=== PATIENT | female | born 1990 | race American Indian/Alaskan Native ===

== ENCOUNTER 2016-06-08 13:18 | Emergency (ER) | payer MEDICAID ==
[2016-06-08 16:14] LABS: Bacteria,Urine 1+ /HPF (Negative); Bilirubin,Urine NEG (Negative); Blood,Urine NEG (Negative); Ketones,Urine NEG (Negative); Leukocyte Esterase,Urine LG (Negative); Mucus,Urine FEW /HPF; Nitrite,Urine NEG (Negative); Protein,Urine <15 mg/dL mg/dL (Negative); Urobilinogen,Urine < 2.0 mg/dL (<2.0)
--- NOTE | 2016-06-08 18:34 | Emergency Department Report ---
ED Female HPI - General Chief complaint: Urogenital-Female Stated complaint: ABD/BACK PAINS Time Seen by Provider: 06/08/16 17:32 Source: patient, family Mode of arrival: Ambulatory Limitations: No Limitations - History of Present Illness Initial comments: Patient here complaining of lower abdominal pain and flank pain with lower back pain. She says she feels like she has a urinary tract infection. She reports pain at 7 out of 10 to her lower abdomen. Patient says she is 19 weeks and she's been followed by [employer]. Denies any nausea vomiting. Denies any vaginal bleeding or discharge. Denies any fever or chills. Reports eating and drinking well. No [id number] medication taken. MD Complaint: pelvic pain, other (flank pain) Onset/Timin -: days(s) Location: other (abdominal and flank pain.) Radiation: non-radiating Severity: moderate Severity scale (0 -10): 7 Quality: cramping Consistency: intermittent Improves with: none Worsens with: none Are you Now?: Yes (98) Associated Symptoms: abdominal pain. denies: vaginal discharge, vaginal bleeding, nausea/vomiting, fever/chills, headaches, loss of appetite, dysuria, hematuria, rash, seizure, shortness of breath, syncope, weakness - Related Data Sexually active: Yes (positive ) Previous Rx's Medication Instructions Recorded Last Taken Type HYDROcodone/APAP 5-325 [Jean 1 each PO Q6HR PRN #20 tablet 01/06/14 Unknown Rx 5/325] Naproxen [Naprosyn TAB] 500 mg PO BID PRN #30 tablet 01/06/14 Unknown Rx Cyclobenzaprine [Flexeril 10mg] 10 mg PO TID PRN #14 tablet 04/08/14 Unknown Rx Ibuprofen [Motrin] 600 mg PO Q8H PRN #20 tablet 04/08/14 Unknown Rx Acetaminophen [Acetaminophen TAB] 500 mg PO Q8H PRN #12 tablet 06/08/16 Unknown Rx Nitrofurantoin Sanborn/M-Cryst 100 mg PO Q12HR #14 capsule 06/08/16 Unknown Rx [Macrobid CAP] Allergies Allergy/AdvReac Type Severity Reaction Status Date / Time No Known Allergies Allergy Verified 01/06/14 23:04 ED Review of Systems ROS: Stated complaint: ABD/BACK PAINS Other details as noted in HPI Comment: All other systems reviewed and negative Constitutional: denies: chills, fever Eyes: denies: eye pain, vision change ENT: denies: ear pain, throat pain, congestion Respiratory: no symptoms reported Cardiovascular: denies: chest pain, palpitations, edema, syncope Gastrointestinal: abdominal pain. denies: nausea, vomiting, diarrhea, constipation Genitourinary: denies: urgency, dysuria, frequency, hematuria, discharge, abnormal menses, dyspareunia Musculoskeletal: back pain Skin: denies: rash Neurological: denies: headache, weakness, numbness, paresthesias, confusion, abnormal gait, vertigo ED Past Medical Hx - Past Medical History Previous Medical History?: No - Surgical History Past Surgical History?: Yes Additional Surgical History: D & C - Family History Family history: no significant - Social History Smoking Status: Never Smoker Substance Use Type: None - Medications Home Medications: Home Medications Medication Instructions Recorded Confirmed Last Taken Type HYDROcodone/APAP 5-325 [Jean 1 each PO Q6HR PRN #20 tablet 01/06/14 Unknown Rx 5/325] Naproxen [Naprosyn TAB] 500 mg PO BID PRN #30 tablet 01/06/14 Unknown Rx Cyclobenzaprine [Flexeril 10mg] 10 mg PO TID PRN #14 tablet 04/08/14 Unknown Rx Ibuprofen [Motrin] 600 mg PO Q8H PRN #20 tablet 04/08/14 Unknown Rx Acetaminophen [Acetaminophen TAB] 500 mg PO Q8H PRN #12 tablet 06/08/16 Unknown Rx Nitrofurantoin Sanborn/M-Cryst 100 mg PO Q12HR #14 capsule 06/08/16 Unknown Rx [Macrobid CAP] ED Physical Exam - General Limitations: No Limitations General appearance: alert, in no apparent distress - Head Head exam: Present: atraumatic, normocephalic, normal inspection - Eye Eye exam: Present: normal appearance, PERRL, EOMI. Absent: periorbital swelling , periorbital tenderness Pupils: Present: normal accommodation - ENT ENT exam: Present: normal exam, normal orophraynx, mucous membranes moist, TM's normal bilaterally, normal external ear exam - Neck Neck exam: Present: normal inspection, full ROM. Absent: tenderness, meningismus, lymphadenopathy - Respiratory Respiratory exam: Present: normal lung sounds bilaterally. Absent: respiratory distress, chest wall tenderness - Cardiovascular Cardiovascular Exam: Present: regular rate, normal rhythm, normal heart sounds - GI/Abdominal GI/Abdominal exam: Present: soft, normal bowel sounds. Absent: distended, tenderness, guarding, rebound, rigid - External exam: Present: normal external exam. Absent: erythema, swelling, lesions, lacerations, ecchymosis, bleeding Speculum exam: Present: normal speculum exam. Absent: erythema, vaginal discharge, cervical discharge, vaginal bleeding, foreign body, tissue, laceration Bi-manual exam: Present: normal bi-manual exam. Absent: cervical motion tendernes, adnexal tenderness, adnexal mass, uterine enlargement, uterine tenderness - Expanded Exam Expanded Female exam: Absent: vaginal laceration, tissue present in vagina, herpetic lesions, vulvar erythema, vulvar tenderness, foreign body External exam: Present: normal Amniotic fluid: Present: none Speculum exam: Present: cervical OS closed. Absent: vaginal bleeding, vaginal discharge - Extremities Exam Extremities exam: Present: normal inspection, full ROM, normal capillary refill. Absent: tenderness, pedal edema, joint swelling, calf tenderness - Back Exam Back exam: Present: normal inspection, full ROM. Absent: tenderness, CVA tenderness (R), CVA tenderness (L), muscle spasm, paraspinal tenderness, vertebral tenderness, rash noted - Neurological Exam Neurological exam: Present: alert, oriented X3, normal gait, reflexes normal. Absent: motor sensory deficit - Psychiatric Psychiatric exam: Present: normal affect, normal mood - Skin Skin exam: Present: warm, dry, intact, normal color. Absent: rash ED Course Vital Signs 06/08/16 06/08/16 14:46 20:21 Temperature 98.4 F Pulse Rate 89 76 Respiratory 16 18 Rate Blood Pressure 119/66 Blood Pressure 121/67 [Left] O2 Sat by Pulse 100 99 Oximetry heart tone is at 168 bpm. - Reevaluation(s) Reevaluation #1: 06/08/16 20:58 Patient given Rocephin 1 g IM and emergency room for urinary tract infection and Tylenol 650 mg for pain. 06/08/16 21:08 ED Medical Decision Making - Lab Data Result diagrams: 06/08/16 18:52 06/08/16 18:52 Lab Results 05/02/2406/08/16 06/08/16 Range/Units 15:53 18:52 18:52 WBC 8.4 (4.5-11.0) K/mm3 RBC 3.66 (3.65-5.03) M/mm3 Hgb 11.4 (10.1-14.3) gm/dl Hct 34.1 (30.3-42.9) % MCV 93 (79-97) fl MCH 31 (28-32) pg MCHC 34 (30-34) % RDW 12.8 L (13.2-15.2) % Plt Count 273 (140-440) K/mm3 Lymph % (Auto) 25.2 (13.4-35.0) % Sanborn % (Auto) 10.0 H (0.0-7.3) % Eos % (Auto) 2.4 (0.0-4.3) % Baso % (Auto) 0.3 (0.0-1.8) % Lymph # 2.1 (1.2-5.4) K/mm3 Sanborn # 0.8 (0.0-0.8) K/mm3 Eos # 0.2 (0.0-0.4) K/mm3 Baso # 0.0 (0.0-0.1) K/mm3 Seg Neutrophils % 62.1 (40.0-70.0) % Seg Neutrophils # 5.2 (1.8-7.7) K/mm3 Sodium 136 L (137-145) mmol/L Potassium 4.1 (3.6-5.0) mmol/L Chloride 99.2 (98-107) mmol/L Carbon Dioxide 25 (22-30) mmol/L Anion Gap 16 mmol/L BUN 10 (7-17) mg/dL Creatinine 0.5 L (0.7-1.2) mg/dL Estimated GFR > 60 ml/min BUN/Creatinine Ratio 20.00 % Glucose 85 (65-100) mg/dL Calcium 9.2 (8.4-10.2) mg/dL HCG, Quant (0-4) mIU/mL Urine Color Yellow (Yellow) Urine Turbidity Cloudy (Clear) Urine pH 6.0 (5.0-7.0) Ur Specific [place] 1.013 (1.003-1.030) Urine Protein <15 mg/dl (Negative) mg/dL Urine Glucose (UA) Neg (Negative) mg/dL Urine Ketones Neg (Negative) mg/dL Urine Blood Neg (Negative) Urine Nitrite Neg (Negative) Urine Bilirubin Neg (Negative) Urine Urobilinogen < 2.0 (<2.0) mg/dL Ur Leukocyte Esterase Lg (Negative) Urine WBC (Auto) 165.0 H (0.0-6.0) /HPF Urine RBC (Auto) 9.0 (0.0-6.0) /HPF U Epithel Cells (Auto) 10.0 (0-13.0) /HPF Urine Bacteria (Auto) 1+ (Negative) /HPF Urine Mucus Few /HPF 06/08/16 Range/Units 18:52 WBC (4.5-11.0) K/mm3 RBC (3.65-5.03) M/mm3 Hgb (10.1-14.3) gm/dl Hct (30.3-42.9) % MCV (79-97) fl MCH (28-32) pg MCHC (30-34) % RDW (13.2-15.2) % Plt Count (140-440) K/mm3 Lymph % (Auto) (13.4-35.0) % Sanborn % (Auto) (0.0-7.3) % Eos % (Auto) (0.0-4.3) % Baso % (Auto) (0.0-1.8) % Lymph # (1.2-5.4) K/mm3 [place]born # (0.0-0.8) K/mm3 Eos # (0.0-0.4) K/mm3 Baso # (0.0-0.1) K/mm3 Seg Neutrophils % (40.0-70.0) % Seg Neutrophils # (1.8-7.7) K/mm3 Sodium (137-145) mmol/L Potassium (3.6-5.0) mmol/L Chloride (98-107) mmol/L Carbon Dioxide (22-30) mmol/L Anion Gap mmol/L BUN (7-17) mg/dL Creatinine (0.7-1.2) mg/dL Estimated GFR ml/min BUN/Creatinine Ratio % Glucose (65-100) mg/dL Calcium (8.4-10.2) mg/dL HCG, Quant 71928 H (0-4) mIU/mL Urine Color (Yellow) Urine Turbidity (Clear) Urine pH (5.0-7.0) Ur Specific [place] (1.003-1.030) Urine Protein (Negative) mg/dL Urine Glucose (UA) (Negative) mg/dL Urine Ketones (Negative) mg/dL Urine Blood (Negative) Urine Nitrite (Negative) Urine Bilirubin (Negative) Urine Urobilinogen (<2.0) mg/dL Ur Leukocyte Esterase (Negative) Urine WBC (Auto) (0.0-6.0) /HPF Urine RBC (Auto) (0.0-6.0) /HPF U Epithel Cells (Auto) (0-13.0) /HPF Urine Bacteria (Auto) (Negative) /HPF Urine Mucus /HPF Urine culture pending She says she already had STD testing at her [employer] office. She says she is not concerned about STD and she does not want to have another one done. - Radiology Data Radiology results: report reviewed . Ultrasound greater than 14 weeks revealed a viable single intrauterine with estimated gestational age is 20 weeks and one day. Estimated due date is 10/25/2016. Placenta is in the right lateral position. The cervix measuring approximately 3.7 cm in length. Biparietal diameter 4.6 cm. Head circumference 17.1 cm. Abdominal circumference (15.2 cm. Femur length history 0.3 cm. Cephalic presentation. - Medical Decision Making ED course: Patient here complaining of lower abdominal pain and back pain. Urinary tract infection. Reveals patient at 20 weeks and 1 day IUP. I discussed lab results with patient along with ultrasound results and told her to follow up with her [employer] in the morning. Patient discharged home with prescription for Tylenol plain and Macrobid. She was given Tylenol 650 mg by mouth for abdominal and back pain and Rocephin 1 g IM for urinary tract infection. She was understanding of discharge diagnosis and treatment plan and discharged home in stable condition with her family. Patient also reported that she was tested for STD recently by her [employer] and she does not want any testing done because she is not concerned about that. She said all her tests were negative. Critical care attestation.: If time is entered above; I have spent that time in minutes in the direct care of this critically ill patient, excluding procedure time. ED Disposition Clinical Impression: Acute cystitis without hematuria, Back pain during Intrauterine normal Qualifiers: Trimester: second trimester Qualified Code(s): Z34.92 - Encounter for supervision of normal , unspecified, second trimester Abdominal pain during Qualifiers: Trimester: second trimester Qualified Code(s): O26.892 - Other specified related conditions, second trimester; R10.9 - Unspecified abdominal pain Disposition: DISCHARGED TO HOME OR SELFCARE Is pt being admited?: No Does the pt Need Aspirin: No Condition: Stable Instructions: Urinary Tract Infection in Women (ED), Acute Abdominal Pain (ED) , Low Back Strain (ED) Additional Instructions: Please increase her fluid intake to 2-3 L of fluid per day. Follow up with [employer] Office in 1-2 days. Take antibiotic as prescribed You can take Tylenol plain as prescribed for pain. Prescriptions: Acetaminophen [Acetaminophen TAB] 500 mg PO Q8H PRN #12 tablet PRN Reason: Pain Nitrofurantoin Sanborn/M-Cryst [Macrobid CAP] 100 mg PO Q12HR #14 capsule Referrals: MICHAELLE ELIZONDO MD [Primary Care Provider] - 06/09/16 Your, [employer] [Other] - 24 Hours Forms: Work/School Release Form(ED)
[2016-06-08] MEDS ORDERED: TYLENOL PO ONE (18:41)
[2016-06-08] MEDS ORDERED: XYLOCAINE 1% MPF 5 mL INFILTRATI ONE (18:43)
[2016-06-08] MEDS ORDERED: ROCEPHIN IM STA (18:43)
[2016-06-08 19:06] LABS: Basophils % (Auto) 0.3 % (0.0-1.8); Eosinophils % (Auto) 2.4 % (0.0-4.3); Hematocrit 34.1 % (30.3-42.9); Hemoglobin 11.4 gm/dl (10.1-14.3); Mean Corpuscular HGB Conc 34 % (30-34); Mean Corpuscular Hemoglobin 31 pg (28-32); Mean Corpuscular Volume 93 fl (79-97); Platelet Count 273 K/mm3 (140-440); Red Blood Count 3.66 M/mm3 (3.65-5.03); Red Cell Distribution Width 12.8 % (13.2-15.2); White Blood Count 8.4 K/mm3 (4.5-11.0)
[2016-06-08 19:17] LABS: Anion Gap 16 mmol/L; Blood Urea Nitrogen 10 mg/dL (7-17); Calcium 9.2 mg/dL (8.4-10.2); Carbon Dioxide 25 mmol/L (22-30); Chloride 99.2 mmol/L (98-107); Glucose 85 mg/dL (65-100); Potassium 4.1 mmol/L (3.6-5.0); Sodium 136 mmol/L (137-145)
[2016-06-08 20:22] VITALS: BP 121/67
--- NOTE | 2016-06-08 20:33 | Ultrasound Report ---
FINAL REPORT EXAM: US OB \T\gt; = 14 WEEKS FETUS HISTORY: back pain and abdominal pain TECHNIQUE: Multiple grayscale sonographic images were obtained of the uterus and fetus. PRIORS: None. FINDINGS: There is a viable single intrauterine with cephalic presentation. Placenta is in right lateral position. The cervix measures approximately 3.7 centimeters in length. Biparietal diameter 4.6 centimeters. Head circumference 17.1 centimeters. Abdominal circumference 15.2 centimeters. Femur length 3.3 centimeters. IMPRESSION: 1. Viable single intrauterine with estimated gestational age 20 weeks 1 day. Estimated due date 10/25/2016. Continued follow-up is recommended.
== END 2016-06-08 21:09 | disposition home or self-care (01) ==
LOC: ED 13:18
DX: O26.892 Other specified pregnancy related conditions, second trimester (principal); R10.30 Lower abdominal pain, unspecified; M54.5 Low back pain; O23.12 Infections of bladder in pregnancy, second trimester; N30.00 Acute cystitis without hematuria; Z3A.20 20 weeks gestation of pregnancy
CPT/HCPCS: 36415; 76805; 80048; 81001; 84702; 85025; 87076; 87086; 87186; 96372; 99284; J0696

== ENCOUNTER 2016-10-18 20:44 | Outpatient (CLI) | payer MEDICAID ==
[2016-10-18 21:12] VITALS: BP 139/80
== END 2016-10-18 22:15 | disposition home or self-care (01) ==
LOC: TRG 20:44
PROVIDERS: ATTEND Obstetrics & Gynecology
DX: O26.893 Other specified pregnancy related conditions, third trimester (principal); R10.2 Pelvic and perineal pain; Z87.891 Personal history of nicotine dependence; Z3A.38 38 weeks gestation of pregnancy
CPT/HCPCS: 59025

== ENCOUNTER 2018-03-14 13:52 | Outpatient (CLI) | payer MEDICAID ==
[2018-03-14] MEDS ORDERED: LACTATED RINGERS 500 ML IV ONE (14:14)
[2018-03-14] MEDS ORDERED: ZOFRAN IV ONE (14:28)
[2018-03-14] MEDS ORDERED: LOMOTIL PO PRN (14:29)
[2018-03-14 15:46] LABS: Bilirubin,Urine NEG (Negative); Blood,Urine NEG (Negative); Color,Urine Yellow (Yellow); Mucus,Urine 1+ /HPF; Protein,Urine <15 mg/dL mg/dL (Negative); Urobilinogen,Urine < 2.0 mg/dL (<2.0); WBC,Urine < 1.0 /HPF (0.0-6.0)
[2018-03-14 15:50] LABS: RBC,Urine < 1.0 /HPF (0.0-6.0)
[2018-03-14 16:10] LABS: Amphetamine Screen,Urine PRESUMPTIVE NEGATIVE; Benzodiazepines Screen,Urine PRESUMPTIVE NEGATIVE; Cocaine Screen,Urine PRESUMPTIVE NEGATIVE; Methadone Screen,Urine PRESUMPTIVE NEGATIVE; Opiate Screen,Urine PRESUMPTIVE NEGATIVE
[2018-03-14 16:48] LABS: Cannabinoid Screen,Urine PRESUMPTIVE POSITIVE
[2018-03-14 17:36] VITALS: BP 116/57
== END 2018-03-14 16:27 | disposition home or self-care (01) ==
LOC: TRG 13:52
PROVIDERS: ATTEND Obstetrics & Gynecology
DX: O47.02 False labor before 37 completed weeks of gestation, second trimester (principal); Z3A.22 22 weeks gestation of pregnancy
CPT/HCPCS: 59025; 80307; 81001; 96360; J2405; J7120

== ENCOUNTER 2018-03-24 14:04 | Outpatient (CLI) | payer MEDICAID ==
[2018-03-24 17:34] LABS: Bilirubin,Urine NEG (Negative); Blood,Urine NEG (Negative); Color,Urine Straw (Yellow); Protein,Urine <15 mg/dL mg/dL (Negative); Urobilinogen,Urine < 2.0 mg/dL (<2.0); WBC,Urine < 1.0 /HPF (0.0-6.0)
[2018-03-24 18:00] VITALS: BP 119/62
== END 2018-03-24 18:33 | disposition home or self-care (01) ==
LOC: TRG 14:04
PROVIDERS: ATTEND Obstetrics & Gynecology
DX: O47.02 False labor before 37 completed weeks of gestation, second trimester (principal); Z3A.23 23 weeks gestation of pregnancy
CPT/HCPCS: 59025; 81001

== ENCOUNTER 2018-05-30 17:42 | Outpatient (CLI) | payer MEDICAID ==
[2018-05-30] MEDS ORDERED: LACTATED RINGERS 500 ML IV ONE (17:49)
[2018-05-30 18:06] VITALS: BP 123/69
[2018-05-30 18:38] LABS: Basophils % (Auto) 0.3 % (0.0-1.8); Eosinophils # (Auto) 0.1 K/mm3 (0.0-0.4); Eosinophils % (Auto) 1.6 % (0.0-4.3); Hematocrit 32.6 % (30.3-42.9); Hemoglobin 10.9 gm/dl (10.1-14.3); Lymphocytes # (Auto) 1.6 K/mm3 (1.2-5.4); Lymphocytes % (Auto) 20.8 % (13.4-35.0); Mean Corpuscular HGB Conc 33 % (30-34); Mean Corpuscular Volume 93 fl (79-97); Monocytes # (Auto) 0.8 K/mm3 (0.0-0.8); Monocytes % (Auto) 10.6 % (0.0-7.3); Platelet Count 307 K/mm3 (140-440); Red Blood Count 3.49 M/mm3 (3.65-5.03); Red Cell Distribution Width 13.6 % (13.2-15.2)
[2018-05-30 18:51] LABS: BUN/Creatinine Ratio 25; Blood Urea Nitrogen 10 mg/dL (7-17); Calcium 8.5 mg/dL (8.4-10.2)
[2018-05-30 19:03] LABS: Bilirubin,Urine NEG (Negative); Blood,Urine NEG (Negative); Color,Urine Amber (Yellow); Mucus,Urine FEW /HPF; Protein,Urine <15 mg/dL mg/dL (Negative); Urobilinogen,Urine < 2.0 mg/dL (<2.0)
[2018-05-30] MEDS ORDERED: TYLENOL PO ONE (20:00)
--- NOTE | 2018-05-30 20:02 | Ultrasound Report ---
PROCEDURE: US OB BPP WO NON-STRESS TECHNIQUE: Ultrasound OB BPP HISTORY: wellbeing COMPARISONS: Ultrasound OB 05/30/18 FINDINGS: LMP 10/11/2017 clinical Age : 33W 0 D LMP EDC 07/18/2018 Biophysical profile scoring [2]movement [2]tone [2]breathing [2]fluid 8/8 overall score Presentation: Cephalic Activity: Monitored Cardiac motion: 164 BPM using M-mode doppler Amniotic Fluid Volume: Adequate MAYI 10.2 cm IMPRESSION: Single viable at 33 weeks 0 days with 8/8 biophysical profile score This document is electronically signed by Della Hernadez MD., May 30 2018 08:00:14 PM ET
--- NOTE | 2018-05-30 20:04 | Ultrasound Report ---
PROCEDURE: US OB LIMITED TECHNIQUE: Ultrasound OB limited HISTORY: wellbeing COMPARISONS: Ultrasound OB 05/30/18 FINDINGS: LMP 10/11/2017 clinical Age : 33W 0 D LMP EDC 07/18/2018 Presentation: Cephalic Activity: Monitored Cardiac motion: 158 BPM using M-mode doppler Amniotic Fluid Volume: Adequate MAYI 10.2 cm IMPRESSION: Single viable at 33 weeks 0 days This document is electronically signed by Della Hernadez MD., May 30 2018 08:02:02 PM ET
== END 2018-05-30 21:22 | disposition home or self-care (01) ==
LOC: TRG 17:42
PROVIDERS: ATTEND Obstetrics & Gynecology
DX: O47.03 False labor before 37 completed weeks of gestation, third trimester (principal); Z3A.33 33 weeks gestation of pregnancy
CPT/HCPCS: 36415; 59025; 76815; 76819; 80048; 81001; 84443; 85025; 93005; 93010

== ENCOUNTER 2018-06-02 17:01 | Outpatient (CLI) | payer MEDICAID ==
[2018-06-02] MEDS ORDERED: LACTATED RINGERS 500 ML IV ONE (17:34)
[2018-06-02 18:41] LABS: Bilirubin,Urine NEG (Negative); Blood,Urine NEG (Negative); Color,Urine Yellow (Yellow); Mucus,Urine FEW /HPF; Protein,Urine <15 mg/dL mg/dL (Negative); Urobilinogen,Urine < 2.0 mg/dL (<2.0)
[2018-06-02 18:44] LABS: Amphetamine Screen,Urine PRESUMPTIVE NEGATIVE; Benzodiazepines Screen,Urine PRESUMPTIVE NEGATIVE; Cannabinoid Screen,Urine PRESUMPTIVE NEGATIVE; Cocaine Screen,Urine PRESUMPTIVE NEGATIVE; Methadone Screen,Urine PRESUMPTIVE NEGATIVE; Opiate Screen,Urine PRESUMPTIVE NEGATIVE
[2018-06-02 20:05] VITALS: BP 105/60
== END 2018-06-02 20:40 | disposition home or self-care (01) ==
LOC: TRG 17:01
PROVIDERS: ATTEND Obstetrics & Gynecology
DX: O26.893 Other specified pregnancy related conditions, third trimester (principal); R10.2 Pelvic and perineal pain; R30.9 Painful micturition, unspecified; L29.2 Pruritus vulvae; Z3A.33 33 weeks gestation of pregnancy
CPT/HCPCS: 80307; 81001; J7120; 96360

== ENCOUNTER 2019-07-12 07:10 | Emergency (ER) | payer SELFPAY ==
[2019-07-12 07:19] VITALS: BP 126/73
[2019-07-12] MEDS ORDERED: ACETAMINOPHEN 500 MG TAB PO ONE (07:21)
--- NOTE | 2019-07-12 07:36 | Emergency Department Report ---
Minor Respiratory - HPI Chief Complaint: Sore Throat Stated Complaint: THROAT PAIN,CHILLS, HEADACHE Time Seen by Provider: 07/12/19 07:22 Duration: 2 Days Pain Location: Throat Severity: moderate Minor Respiratory: Yes Sore Throat, Yes Able to Tolerate Fluids, Yes Fever, No Rhinorrhea, No Ear Pain, No Cough, No Sick Contacts, No Hemoptysis, No Chest Pain, No Shortness of Breath Other History: Patient is a 29-year-old -[place] female who comes to the ER with sore throat and fever. She is talking but with the muffled tones of pharyngitis. She denies recent exposure. She denies cough. She denies shortness of breath. She denies chest pain. Patient does have bilateral exudates and enlarged tonsils and adenoids. Patient is ambulatory and nontoxic on arrival to [facility]. ED Review of Systems ROS: Stated complaint: THROAT PAIN,CHILLS, HEADACHE Other details as noted in HPI Comment: All other systems reviewed and negative ED Past Medical Hx - Past Medical History Previous Medical History?: No Hx Hypertension: No Hx Diabetes: No Hx Deep Vein Thrombosis: No Hx Renal Disease: No Hx Sickle Cell Disease: No Hx Seizures: No Hx Asthma: No Hx HIV: No - Surgical History Past Surgical History?: No Additional Surgical History: D & C - Family History Family history: no significant - Social History Smoking Status: Never Smoker Substance Use Type: None - Medications Home Medications: Home Medications Medication Instructions Recorded Confirmed Last Taken Type Amoxicillin [Trimox CAP] 500 mg PO BID #20 capsule 07/12/19 Unknown Rx Ibuprofen [Motrin] 800 mg PO Q8HR PRN #30 tablet 07/12/19 Unknown Rx Minor Respiratory Exam - Exam General: Vital signs noted. No distress. Alert and acting appropriately. HEENT: Yes Pharyngeal Erythema, Yes Pharyngeal Exudates, Yes Moist Mucous Membranes, No Rhinorrhea, No Conjuctival Injection, No Frontal Tenderness, No Maxillary Tenderness Ear: Neither TM Bulge, Neither TM Erythema, Neither EAC Pain, Neither EAC Discharge Neck: Yes Supple, No Adenopathy Lungs: Yes Good Air Exchange, No Wheezes, No Ronchi, No Stridor, No Cough, No Labored Respirations, No Retractions, No Use of Accessory Muscles, No Other Abnormal Lung Sounds Heart: Yes Regular, No Murmur Abdomen: Yes Normal Bowel Sounds, No Tenderness, No Peritoneal Signs Skin: No Rash, No Edema Neurologic: Alert and oriented, no deficits. Musculoskeletal: Unremarkable. ED Course Vital Signs 07/12/19 07/12/19 07:16 07:25 Temperature 101.1 F H Pulse Rate 105 H Respiratory 16 18 Rate Blood Pressure 126/73 O2 Sat by Pulse 98 Oximetry ED Medical Decision Making - Medical Decision Making Patient's exam consistent with exudative pharyngitis. Patient medicated for fever. Given Decadron for swelling. Amoxicillin began in the ER. Patient being discharged home with prescriptions and PCP follow-up. Vital Signs 07/12/19 07/12/19 07:16 07:25 Temperature 101.1 F H Pulse Rate 105 H Respiratory 16 18 Rate Blood Pressure 126/73 O2 Sat by Pulse 98 Oximetry - Differential Diagnosis URI Critical care attestation.: If time is entered above; I have spent that time in minutes in the direct care of this critically ill patient, excluding procedure time. ED Disposition Clinical Impression: Exudative pharyngitis Disposition: DC-01 TO HOME OR SELFCARE Is pt being admited?: No Does the pt Need Aspirin: No Condition: Stable Instructions: Pharyngitis (ED) Prescriptions: Ibuprofen [Motrin] 800 mg PO Q8HR PRN #30 tablet PRN Reason: Pain, Moderate (4-6) Amoxicillin [Trimox CAP] 500 mg PO BID #20 capsule Referrals: HOMERO KAUR MD [Staff Physician] - 3-5 Days Forms: Work/School Release Form(ED) Time of Disposition: 07:36
[2019-07-12] MEDS ORDERED: dexAMETHasone 4 MG/ML VIAL IM ONE (07:39)
[2019-07-12] MEDS ORDERED: AMOXICILLIN 500 MG CAP PO ONE (07:39)
== END 2019-07-12 08:20 | disposition home or self-care (01) ==
LOC: ED 07:10
DX: J02.9 Acute pharyngitis, unspecified (principal); Z79.899 Other long term (current) drug therapy
CPT/HCPCS: 96372; 99282; J1100